=== PATIENT | male | born 1980 | race Caucasian/White ===

== ENCOUNTER 2020-02-08 08:00 | Outpatient (CLI) | payer OTHER, SELFPAY ==
--- NOTE | 2020-02-08 08:13 | MR_ITS ---
WS: [id number] MRI THORACIC SPINE noncontrast. HISTORY: PAIN IN THORACIC SPINE COMPARISON: None available. TECHNIQUE: Multiplanar sequences are performed in sagittal and axial planes. Slight increase in thoracic kyphosis centered in the upper thoracic spine. Prior vertebroplasties at T3, T4, T5 and T6. There is very mild anterior wedging of these vertebral bodies. No additional fract ures. No acute fracture. T1-2: Normal. T2-3: Normal. T3-4: Normal. T4-5: Small osteophyte or disc LEFT paracentral with slight encroachment upon the thecal sac. No sig nificant stenosis. T5-6: Normal. T6-7: Normal. T7-8: Normal. T8-9: Normal. T9-10: Mild bilateral facet joint arthritis without significant stenosis. T10-11: Mild facet arthritis. T11-12: Normal. Paraspinal soft tissues are negative. MR/MR thoracic spin wo con* [id number] IMPRESSION: 1. Focal kyphosis centered in the upper thoracic spine. 2. Mild anterior wedging with vertebroplasties from T3 to T6. 3. Osteophytic bone hypertrophy encroaching upon the LEFT lateral thecal sac a t the T4-5 level. No displacement of the cord.
== END 2020-02-08 08:01 | disposition home or self-care (01) ==
LOC: RADWPI 08:05
PROVIDERS: Visit Provider Nurse Practitioner
DX: M54.6 Pain in thoracic spine (principal); M40.204 Unspecified kyphosis, thoracic region; M48.54XA Collapsed vertebra, not elsewhere classified, thoracic region, initial encounter for fracture; X58.XXXA Exposure to other specified factors, initial encounter; M25.78 Osteophyte, vertebrae
CPT/HCPCS: 72146

== ENCOUNTER → 2020-08-17 12:45 | Outpatient (BNVA) | payer OTHER, SELFPAY | PROVIDERS: Visit Provider Surgery | DX: Z01.818 Encounter for other preprocedural examination (principal); Z20.822 Contact with and (suspected) exposure to COVID-19 | CPT/HCPCS: 87635 ==

== ENCOUNTER 2020-08-22 07:10 | Day surgery (SDC) | payer OTHER, SELFPAY ==
[2020-08-20 10:14] VITALS: BMI 22.8
--- NOTE | 2020-08-22 07:30 | ANES.PREANE2 ---
Pre-Anesthetic Assessment Pre-Anesthetic Assessment: Height/Weight: Height 1.73 m Weight 68.039 kg Proposed Procedure: Operation Date: 08/22/20 08:30 Proposed Procedures p Colonoscopy 88781 Z86.010 K62.5(Not Applicable) - Garrison Minaya MD Was Beta Joseph taken within 24 hours: N/A Was Clonidine taken within 24 hours: N/A Social: Social History: No alcohol and No tobacco Exam: Pre-Anes Outpt Exam: alert, oriented x 3, clear to auscultation bilaterally and regular rate & rhythm Airway: Submandibular: WNL Cervical ROM: WNL MP: 2 Dentition: Full Additional comments: Ross GI: GI: GERD Musc/skel: Musc/skel: Lower Back Pain Comments: Chronic pain/opioid Neuropsych: Neuropsych: Anxiety and Depression Anesthetic Plan: ASA status: 3 Anesthesia: MAC Risk of > 500 ml blood loss (7ml/kg in children): No PFSH Anesthesia PFSH: Family History Grandmother Anesthesia complication Diabetes Hypertension Stroke Psychiatric illness Mother Dementia Hypertension Psychiatric illness Suicide Father Dementia Hypertension Lung disease Stroke Grandfather Dementia Hypertension Psychiatric illness Denies family history of CAD (coronary artery disease) Clotting disorder Hyperlipidemia Chronic kidney disease (CKD) Bleeding disorder Family history of premature coronary artery disease Cancer Data Anesthesia Cardiac Studies: No Data to Display
[2020-08-22 07:51] VITALS: BP 119/77; PULSE 62; RESP 18; TEMP 36.4; O2SAT 98
[2020-08-22] MEDS: sodium chloride 0.9% 1,000 ML 30 ML IV (07:57)
--- NOTE | 2020-08-22 09:14 | P.HP_ITS ---
Same Day Surgery H&P Indication for Procedure/HPI DATE OF PROCEDURE: August 22, 2020 CHIEF COMPLAINT/INDICATIONFOR SURGICAL PROCEDURE: Bleeding per rectum PREOP DIAGNOSIS: Bleeding per rectum PLANNED PROCEDRUE: Operation Date: 08/22/20 08:30 Proposed Procedures p Colonoscopy 69634 Z86.010 K62.5(Not Applicable) - Garrison Minaya MD This is a pleasant 39 years old gentleman referred to my practice with history of bleeding per rectum associated with rectal pain. Patient has been experiencing protrusion of lining of his anal canal while defecation and overall symptoms has been ranging for the past couple of years with regard to the prolapse-like symptoms yet the rectal pain has been there for few years now. Patient had a colonoscopy 10 years ago and was found to have polyps. He experience blood on wiping and he does report history of constipation as well. Patient gives history of inflammatory bowel disease of his mother and grandfather. And he is referred to me for further evaluation and potential intervention. Patient denies history of colon cancer. Interim history 08/22/2020 Patient comes today for diagnostic colonoscopy ROS All systems have been reviewed negative except as per the above or per problem list Medications/Allergies* Home Medications Medication Instructions Recorded Confirmed Type acetaminophen 325 mg capsule 650 mg PO TID PRN cap 07/02/20 08/22/20 History aspirin 81 mg tablet,delayed 162 mg PO DAILY tab 07/02/20 08/22/20 History release buprenorphine 8 mg-naloxone 2 mg 2 film SUBLINGUAL TID ea 07/02/20 08/22/20 History sublingual film famotidine 20 mg tablet 20 mg PO BID 07/02/20 08/22/20 History gabapentin 600 mg tablet 600 mg PO TID 07/02/20 08/22/20 History pantoprazole 20 mg tablet,delayed 20 mg PO DAILY 07/02/20 08/22/20 History release sertraline 100 mg tablet 200 mg PO DAILY tab 07/02/20 08/22/20 History bupropion HCl [Wellbutrin] 150 mg PO BID 08/20/20 08/22/20 History multivitamin 1 cap PO DAILY 08/20/20 08/22/20 History polyethylene glycol 3350 [Miralax] 17 g PO DAILY PRN 08/20/20 08/22/20 History pravastatin 10 mg PO DAILY 06/14/21 06/16/21 History sennosides-docusate sodium [Senna 1 tab-cap PO BID PRN 08/20/20 08/22/20 History Plus] Allergies/Adverse Reactions Allergy/AdvReac Type Severity Reaction Status Date / Time tramadol [From Ultram] Allergy Severe seizures Verified 08/22/20 09:15 Current Medications: Generic Name Dose Route Start Last Admin Trade Name Freq PRN Reason Stop Dose Admin Sodium Chloride 1,000 mls @ 30 mls/hr 08/22/20 07:45 08/22/20 07:57 Sodium Chloride 0.9% IV 08/23/20 07:44 30 mls/hr .Q24H TOYIN Administration Pertinent History/Comorbid Conditions* Family History (Updated 07/02/20 @ 13:24 by Brianda Estrada LPN) Diabetes Grandmother Dementia Mother Father Grandfather Psychiatric illness Grandmother Mother Grandfather Suicide Mother Anesthesia complication Grandmother Lung disease Father Hypertension Grandmother Mother Father Grandfather Stroke Grandmother Father Denies family history of CAD (coronary artery disease) Clotting disorder Hyperlipidemia Chronic kidney disease (CKD) Bleeding disorder Family history of premature coronary artery disease Cancer Pertinent Exam Findings alert, oriented x 3, clear to auscultation bilaterally, regular rate & rhythm and procedure specific exam findings (Abdominal examination nontender nondistended soft) Recommendations Surgery/Procedure today (Colonoscopy with possible biopsy) Other Plans: Plan of care; After thorough history and physical examination and reviewing the chart, plan to perform diagnostic colonoscopy. I discussed with the patient in details the risks,benefits,alternatives and indications.The risk of aspiration, bleeding, soft tissue injury, perforation of the colon and other potential concomitant complications were explained to the patient in details,also the potential need for Laproscoy/Laparotomy to repair any related complications including but not limited to colectomy and or Closotomy.The patient understood this well and did agree to proceed. Rationale was carefully and clearly discussed with the patient.Appropriate informed consent have been reviewed and signed All questions have been answered and all concerns have been addressed to patient's satisfaction. 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
[2020-08-22 09:40] VITALS: BP 87/51; PULSE 59; RESP 12; TEMP 36.4; O2SAT 98
[2020-08-22 09:55] VITALS: BP 118/66; PULSE 78; RESP 18; TEMP 36.4; O2SAT 97
--- NOTE | 2020-08-22 10:18 | SUR.PHASEII ---
10:00 Patient agitated and anxious . Vital signs stable. Patient requesting IV sedation medication. Family at bedside. Patient instructed by to go home and he will self medicate.Per request of patient given discharge instructions and wheeled out to car. Patient physically aggressive, demanding narcotic pain medication. Patient escorted to car by , who verbalized understanding.
--- NOTE | 2020-08-22 13:57 | ANE.PACU2 ---
Inpatient post-anesthesia follow up: Airway intact: Yes Vital signs: Temperature 97.5 F Pulse Rate 78 Respiratory Rate 18 Blood Pressure 118/66 Pulse Oximetry 97 Oxygen Delivery Me thod Room Air Oxygen Flow Rate Fraction of Inspir ed Oxygen Hydration adequate: Yes Nausea and vomiting: No Pain level: 1 Mental status: Baseline
== END 2020-08-22 10:00 | disposition home or self-care (01) ==
PROVIDERS: Visit Provider Surgery
PROC: 0DJD8ZZ Inspection of Lower Intestinal Tract, Via Natural or Artificial Opening Endoscopic (ICD-10-PCS; CPT 45378; principal; 2020-08-22 08:30)
DX: K62.5 Hemorrhage of anus and rectum (principal); Z79.82 Long term (current) use of aspirin; Z83.3 Family history of diabetes mellitus; Z82.49 Family history of ischemic heart disease and other diseases of the circulatory system; K21.9 Gastro-esophageal reflux disease without esophagitis; F41.9 Anxiety disorder, unspecified; F32.9 Major depressive disorder, single episode, unspecified
CPT/HCPCS: 45378; 96360; 96361; J2704; J7030

== ENCOUNTER → 2020-12-28 11:34 | Outpatient (BNVA) | payer OTHER, SELFPAY | PROVIDERS: Visit Provider Nurse Practitioner | DX: R06.00 Dyspnea, unspecified (principal) | CPT/HCPCS: 71046 ==

== ENCOUNTER → 2021-01-03 09:15 | Outpatient (BNVA) | payer OTHER, SELFPAY | PROVIDERS: Visit Provider Family Medicine | DX: R07.9 Chest pain, unspecified (principal) | CPT/HCPCS: 80053; 84484; 85025 ==

== ENCOUNTER 2021-07-04 09:06 | Day surgery (SDC) | payer OTHER, SELFPAY ==
[2021-07-03 08:38] VITALS: BMI 25.8
[2021-07-04 09:29] VITALS: BP 116/75; PULSE 66; RESP 16; TEMP 36.9; O2SAT 97
[2021-07-04] MEDS: sodium chloride 0.9% 1,000 ML 30 ML IV (09:42)
--- NOTE | 2021-07-04 10:36 | P.HP_ITS ---
Same Day Surgery H&P Indication for Procedure/HPI DATE OF PROCEDURE: July 04, 2021 CHIEF COMPLAINT/INDICATIONFOR SURGICAL PROCEDURE: Nabeel sharpe PREOP DIAGNOSIS: Epigastric pain PLANNED PROCEDURE: Operation Date: 07/04/21 11:00 Proposed Procedures p EGD 67010/r10.13(Not Applicable) - Garrison Minaya MD 04/24/2021 This is a pleasant 40 years old gentleman well-known to me from previous clinical encounter.? Has been experiencing epigastric pain for quite long time associated with tenderness and burning.? Being referred to the chest and being intermittent in nature.? Patient reports that he has been on PPI therapy for more than 6 months without obvious improvement.? Denies any nausea vomiting or hematemesis.? Patient is referred to me for diagnostic EGD.? Patient recently had a colonoscopy on 08/22/2020.? For bleeding per rectum and the colon was normal and recommended to repeat colonoscopy in 10 years unless otherwise specified. 07/04/2021 Patient comes today for diagnostic EGD ROS All systems have been reviewed negative except as per the above or per problem list Medications/Allergies* Home Medications Medication Instructions Recorded Confirmed Type acetaminophen 325 mg capsule 650 mg PO TID PRN cap 07/02/20 07/04/21 History (Tylenol) buprenorphine 8 mg-naloxone 2 mg 2 film SUBLINGUAL TID ea 07/02/20 07/04/21 History sublingual film (Suboxone) gabapentin 600 mg tablet 600 mg PO TID 07/02/20 07/04/21 History sertraline 100 mg tablet (Zoloft) 200 mg PO DAILY tab 07/02/20 07/04/21 History multivitamin 1 cap PO DAILY 08/20/20 07/04/21 History polyethylene glycol 3350 17 17 g PO DAILY PRN 08/20/20 07/04/21 History gram/dose oral powder (Miralax) albuterol sulfate 90 mcg/actuation 2 puff INHALATION QID PRN 07/03/21 07/04/21 History aerosol inhaler (ProAir HFA) bupropion HCl 150 mg 24 hr tablet, 150 mg PO DAILY 07/03/21 07/04/21 History extended release buspirone 15 mg tablet 15 mg PO TID 07/03/21 07/04/21 History naloxone 4 mg/actuation nasal spray 2 spray INTRANASAL PRN PRN 07/03/21 07/04/21 History Allergies/Adverse Reactions Allergy/AdvReac Type Severity Reaction Status Date / Time tramadol [From [facility]] Allergy Severe seizures Verified 07/04/21 10:37 Current Medications: Generic Name Dose Route Start Last Admin Trade Name Freq PRN Reason Stop Dose Admin Sodium Chloride 1,000 mls @ 30 mls/hr 07/04/21 09:30 07/04/21 09:42 Sodium Chloride 0.9% IV 07/05/21 09:29 30 mls/hr .Q24H TOYIN Administration Pertinent History/Comorbid Conditions* Medical History (Updated 04/25/21 @ 12:56 by Garrison Minaya MD) Bleeding per rectum Normal colonoscopy Family History (Updated 07/02/20 @ 13:24 by Brianda Estrada LPN) Diabetes Grandmother Dementia Mother Father Grandfather Psychiatric illness Grandmother Mother Grandfather Suicide Mother Anesthesia complication Grandmother Lung disease Father Hypertension Grandmother Mother Father Grandfather Stroke Grandmother Father Denies family history of CAD (coronary artery disease) Clotting disorder Hyperlipidemia Chronic kidney disease (CKD) Bleeding disorder Family history of premature coronary artery disease Cancer Social History Smoking and tobacco status: current every day smoker Pertinent Exam Findings alert, oriented x 3 and procedure specific exam findings (Abdominal examination nontender nondistended soft) Recommendations Surgery/Procedure today ( EGD with possible biopsy) Coding Level of Care Code Acute Frame 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
--- NOTE | 2021-07-04 11:05 | ANES.PREANE2 ---
Documented by User: Jeannine Bhatia CRNA 07/04/21 11:24 Pre-Anesthetic Assessment Height/Weight: Height 1.75 m Weight 79.379 kg Temp Pulse Resp BP Pulse Ox 98.5 F 66 16 116/75 97 07/04/21 09:29 07/04/21 09:29 07/04/21 09:29 07/04/21 09:29 07/04/21 09:29 Preop Diagnosis: Epigastric pain Operation Date: 07/04/21 11:00 Proposed Procedures p EGD 76485/r10.13(Not Applicable) - Garrison Minaya MD Familial anesthetic complications: wakes up in a panic Was Beta Joseph taken within 24 hours: N/A Was Clonidine taken within 24 hours: N/A Last intake: Intake Last Liquid Date 07/03/21 Last Liquid Time 23:00 Last Solid Date 07/03/21 Last Solid Time 23:00 Social daily MJ smoker. 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) Anesthetic Plan ASA status: 3 Anesthesia: Anesthesia Evaluation and MAC Risk of > 500 ml blood loss (7ml/kg in children): No Medications/Allergies Home Medications Medication Instructions Recorded Confirmed Last Taken Type acetaminophen 325 mg capsule 650 mg PO TID PRN cap 07/02/20 07/04/21 2 Weeks Ago History (Tylenol) ~08/08/20 buprenorphine 8 mg-naloxone 2 mg 2 film SUBLINGUAL TID ea 07/02/20 07/04/21 07/04/21 History sublingual film (Suboxone) gabapentin 600 mg tablet 600 mg PO TID 07/02/20 07/04/21 07/03/21 History sertraline 100 mg tablet (Zoloft) 200 mg PO DAILY tab 07/02/20 07/04/21 07/03/21 History multivitamin 1 cap PO DAILY 08/20/20 07/04/21 07/03/21 History polyethylene glycol 3350 17 17 g PO DAILY PRN 08/20/20 07/04/21 2 Weeks Ago History gram/dose oral powder (Miralax) ~08/08/20 pantoprazole 40 mg tablet,delayed 40 mg PO BID #60 tab 01/03/21 07/04/21 07/03/21 Rx release albuterol sulfate 90 mcg/actuation 2 puff INHALATION QID PRN 07/03/21 07/04/21 07/04/21 History aerosol inhaler (ProAir HFA) bupropion HCl 150 mg 24 hr tablet, 150 mg PO DAILY 07/03/21 07/04/21 07/03/21 History extended release buspirone 15 mg tablet 15 mg PO TID 07/03/21 07/04/21 07/03/21 History naloxone 4 mg/actuation nasal spray 2 spray INTRANASAL PRN PRN 07/03/21 07/04/21 Unknown History Allergies Allergy/AdvReac Type Severity Reaction Status Date / Time tramadol [From Ultra] Allergy Severe seizures Verified 07/04/21 10:37 Current Medications Generic Name Dose Route Start Last Admin Trade Name Freq PRN Reason Stop Dose Admin Sodium Chloride 1,000 mls @ 30 mls/hr 07/04/21 09:30 07/04/21 09:42 Sodium Chloride 0.9% IV 07/05/21 09:29 30 mls/hr .Q24H TOYIN Administration PFSH Anesthesia Medical History Bleeding per rectum Normal colonoscopy Family History Grandmother Anesthesia complication Diabetes Hypertension Stroke Psychiatric illness Mother Dementia Hypertension Psychiatric illness Suicide Father Dementia Hypertension Lung disease Stroke Grandfather Dementia Hypertension Psychiatric illness Denies family history of CAD (coronary artery disease) Clotting disorder Hyperlipidemia Chronic kidney disease (CKD) Bleeding disorder Family history of premature coronary artery disease Cancer Social History Smoking and tobacco status: current every day smoker Data Anesthesia Cardiac Studies: No Data to Display
[2021-07-04 11:29] VITALS: BP 109/61; PULSE 63; RESP 16; TEMP 36.4; O2SAT 97
--- NOTE | 2021-07-04 11:35 | ANE.PACU2 ---
Documented by User: Jeannine Bhatia CRNA 07/04/21 12:15 Inpatient post-anesthesia follow up: Airway intact: Yes Vital signs: Temperature 98.5 F Pulse Rate 66 Respiratory Rate 16 Blood Pressure 116/75 Pulse Oximetry 97 Oxygen Delivery Me thod Room Air Oxygen Flow Rate Fraction of Inspir ed Oxygen Hydration adequate: Yes Nausea and vomiting: No Pain level: 1 Mental status: Baseline
[2021-07-04 11:40] VITALS: BP 114/72; PULSE 78; RESP 18; O2SAT 95
== END 2021-07-04 11:59 | disposition home or self-care (01) ==
PROVIDERS: Visit Provider Surgery
PROC: 0DJ08ZZ Inspection of Upper Intestinal Tract, Via Natural or Artificial Opening Endoscopic (ICD-10-PCS; CPT 43235; principal; 2021-07-04 11:00)
DX: R10.13 Epigastric pain (principal); Z82.49 Family history of ischemic heart disease and other diseases of the circulatory system; Z83.3 Family history of diabetes mellitus; F17.210 Nicotine dependence, cigarettes, uncomplicated; K21.9 Gastro-esophageal reflux disease without esophagitis
CPT/HCPCS: 43239; 88305; J2250; J2704; J7030

== ENCOUNTER → 2021-07-17 09:36 | Outpatient (BNVA) | payer OTHER, SELFPAY | PROVIDERS: Visit Provider Surgery | DX: Z09 Encounter for follow-up examination after completed treatment for conditions other than malignant neoplasm (principal); R10.13 Epigastric pain | CPT/HCPCS: 99213 ==

== ENCOUNTER → 2021-07-25 14:19 | Outpatient (BNVA) | payer OTHER, SELFPAY | PROVIDERS: Visit Provider Surgery | DX: K62.3 Rectal prolapse (principal) | CPT/HCPCS: 99213 ==

== ENCOUNTER 2022-12-26 11:45 | Outpatient (CLI) | payer OTHER, SELFPAY ==
--- NOTE | 2022-12-26 | ECG_ITS ---
[facility] Test Date: 2022-12-26 Pat Name: Kelvin Zendejas Department: Room: Gender: Male White [employer] Sy[employer] Operator: Alex Ellington : 1980 Requested By: Savi Patton Order Number: [id number] Tim MD: Kendal Squires M.D. Interpretive Statements NAME OF STUDY: TREADMILL STRESS TEST INDICATION: Chest Pain, PROCEDURE: At the baseline, the patient's blood pressure was 139/94 with a heart rate of 70. The baseline electrocardiogram showed normal sinus rhythm with normal ST-Ts.. The patient exercised for 10 minutes and 23 seconds on a standard Leon protocol. Patient attained a maximum heart rate of 164 beats per minute(91% of the maximum predicted heart rate) with a blood pressure at the peak exercise of 161/87 mm Hg. The EKG at the peak exercise revealed no significant changes. Patient did not have any chest pain or any significant cardiac arrhythmias with the exercise During the recovery phase, there were no new changes. Blood pressure at the end of the recovery phase was 153/90 mm Hg with a heart rate of 74 per minute. CONCLUSION: 1. Normal EKG response to treadmill exercise 2. No exercise-induced chest pain or cardiac arrhythmia 3. Good exercise tolerance, attained a maximum of 13.5 METs Electronically Signed On 12-26-2022 15:47:37 CDT by Kendal Squires M.D. [email or web address]
[2022-12-26 11:54] VITALS: BMI 25.0
[2022-12-26 12:32] VITALS: BP 153/90; PULSE 78
== END 2022-12-26 11:46 | disposition home or self-care (01) ==
LOC: CDL 11:46
PROVIDERS: Visit Provider Family Medicine
DX: R07.9 Chest pain, unspecified (principal)
CPT/HCPCS: 93017